=== PATIENT | female | born 1995 | race Caucasian/White ===

== ENCOUNTER 2017-05-11 09:51 | Emergency (ER) | payer OTHER ==
[2017-05-11] MEDS ORDERED: NO MEDICATIONS (09:57)
[2017-05-11 10:40] LABS: URINE SOURCE CLEAN CATCH
[2017-05-11 10:47] LABS: URINE APPEARANCE CLEAR; URINE BILIRUBIN NEG (NEG); URINE BLOOD NEG (NEG); URINE COLOR YELLOW; URINE GLUCOSE NEG (NORM); URINE KETONE NEG (NEG); URINE LEUKOCYTE ESTERASE NEG (NEG); URINE NITRATE NEG (NEG); URINE PH 6.5 (5-8); URINE PROTEIN NEG (NEG); URINE SPECIFIC GRAVITY 1.015 (1.003-1.035); URINE UROBILINOGEN 0.2 MG/DL (NORM)
[2017-05-11 10:56] LABS: MICRO INDICATED? NO
[2017-05-11] MEDS ORDERED: REGLAN10 MG PO (11:47)
== END 2017-05-11 11:47 | disposition home or self-care (01) ==
LOC: SED 09:51
PROVIDERS: Emergency Medicine
DX: O99.351 Diseases of the nervous system complicating pregnancy, first trimester (principal); G44.209 Tension-type headache, unspecified, not intractable; Z3A.09 9 weeks gestation of pregnancy
CPT/HCPCS: 81003; 96361; 96374; 96375; 99284; J1200; J2765